=== PATIENT | female | born 1980 | race Two or more races ===

== ENCOUNTER 2018-04-15 22:51 | Emergency (ER) | payer BC, MEDICAID ==
[2018-04-15 23:01] VITALS: BP 182/100
--- NOTE | 2018-04-15 23:42 | EDM.PDOC ---
ED HPI GENERAL MEDICAL PROBLEM - General Chief Complaint: Genitourinary Problem Stated Complaint: POSS CYST ON VAGINAL AREA Time Seen by Provider: 04/15/18 23:42 - History of Present Illness INITIAL COMMENTS - FREE TEXT/NARRATIVE: 37-year-old female presents emergency room with a migraine and she has a right vaginal cyst. Patient developed migraine headache earlier today this progressively getting worse it has associated photophobia and nausea It is acting like a typical headache. It is frontal in nature. I am uncertain whether she had an aura with it or not. Patient usually uses Imitrex for this however this is at home and she has not attempted to use it today. Over the last several days the patient has had a growth in her vaginal area progressively getting worse it is tender. She's had problems like this in the past. She was scheduled to see metaphysicist however that appointment got canceled due to an emergency. Patient has not had any fevers or chills has not noticed any drainage from it Vaginal Pain Score (Numeric/FACES): 10 - Related Data Allergies Allergy/AdvReac Type Severity Reaction Status Date / Time chlorhexidine Allergy Rash Verified 04/16/18 00:32 Home Meds: Home Meds SUMAtriptan [Imitrex] 25 mg PO Q2H PRN #30 tablet 09/17/16 [Rx] Clindamycin HCl [Cleocin] 150 mg PO Q6H #40 cap 04/16/18 [Rx] Past Medical History Cardiovascular History: Reports: Hypertension, Other (See Below) Other Cardiovascular History: "Palpitations" [employer] History: Reports: Neurological History: Reports: Migraines - Past Surgical History GI Surgical History: Reports: Appendectomy Female Surgical History: Reports: Section, Tubal Ligation Social & Family History - Family History Family Medical History: Unobtainable - Tobacco Use Smoking Status *Q: Never Smoker - Caffeine Use Caffeine Use: Reports: None - Living Situation & Occupation Living situation: Reports: , with Spouse Occupation: Unemployed ED ROS GENERAL - Review of Systems Review Of Systems: See Below Constitutional: Denies: Fever, Chills HEENT: Reports: No Symptoms Respiratory: Reports: No Symptoms Cardiovascular: Reports: No Symptoms Endocrine: Reports: No Symptoms GI/Abdominal: Reports: Nausea : Reports: No Symptoms Musculoskeletal: Reports: No Symptoms Skin: Reports: No Symptoms Neurological: Reports: Headache. Denies: Confusion, Dizziness, Numbness, Pre- Existing Deficit, Seizure, Syncope ED EXAM, RENAL/ - Physical Exam Exam: See Below Exam Limited By: No Limitations General Appearance: Alert, No Apparent Distress Eye Exam: Bilateral Eye: EOMI, Normal Inspection Ears: Normal External Exam, Normal Canal, Hearing Grossly Normal, Normal TMs Nose: Normal Inspection, Normal Mucosa, No Blood Throat/Mouth: Normal Inspection, Normal Lips, Normal Teeth, Normal Gums, Normal Oropharynx, Normal Voice, No Airway Compromise Head: Atraumatic, Normocephalic Neck: Normal Inspection, Supple, Non-Tender, Full Range of Motion. No: Lymphadenopathy (L), Lymphadenopathy (R) Respiratory/Chest: No Respiratory Distress, Lungs Clear, Normal Breath Sounds Cardiovascular: Regular Rate, Rhythm, No Edema, No Murmur GI/Abdominal: Normal Bowel Sounds, Soft, Non-Tender (Female) Exam: Vaginal Lesions (She has a right labial cyst versus abscess not a lot of surrounding erythema) Back Exam: Normal Inspection. No: CVA Tenderness (L), CVA Tenderness (R) Extremities: No Pedal Edema Neurological: Alert, Oriented, CN II-XII Intact, Normal Cognition, Normal Gait, Normal Reflexes, No Motor/Sensory Deficits, Other (Radial nerves II through XII grossly intact all muscle groups the upper lower extremities recall appropriate bilaterally deep tendon reflexes are equal and appropriate bilaterally. Cerebellar testing is normal) Course - Vital Signs Last Recorded V/S: Last Vital Signs Temp 36.8 C 04/15/18 22:59 Pulse 70 04/15/18 22:59 Resp BP 182/100 H 04/15/18 22:59 Pulse Ox 100 04/15/18 22:59 - Orders/Labs/Meds Meds: Medications Discontinued Medications Generic Name Dose Route Start Last Admin Trade Name Freq PRN Reason Stop Dose Admin Clindamycin HCl 150 mg 04/16/18 00:07 04/16/18 00:55 Cleocin PO 04/16/18 00:08 150 mg ONETIME ONE Administration Diphenhydramine HCl 50 mg 04/16/18 00:00 04/16/18 00:20 Benadryl IVPUSH 04/16/18 00:01 50 mg ONETIME ONE Administration Lactated Ringer's 1,000 mls @ 999 mls/hr 04/16/18 00:00 04/16/18 00:18 Ringers, Lactated IV 04/16/18 01:00 999 mls/hr .BOLUS ONE Administration Ondansetron HCl 4 mg 04/16/18 00:00 04/16/18 00:18 Zofran IVPUSH 04/16/18 00:01 4 mg ONETIME ONE Administration - Re-Assessments/Exams Free Text/Narrative Re-Assessment/Exam: 04/16/18 00:[address] Toribio patient be started on clindamycin and will follow up with Dr. Toribio hopefully by the end of this week. Patient will be given LR Zofran and Benadryl for her headache 04/16/18 01:05 The patient's IV infiltrated however she's doing much better from a migraine standpoint would like to go home and get some rest Departure - Departure Time of Disposition: 01:06 Disposition: Home, Self-Care 01 Clinical Impression: Migraine, Vaginal cyst - Discharge Information Prescriptions: Clindamycin HCl [Cleocin] 150 mg PO Q6H #40 cap Instructions: Migraine Headache, [id number] Referrals: PCP,Unknown [Primary Care Provider] - Isabel Huynh MD [Physician] - Forms: ED Department Discharge Additional Instructions: Return to the emergency room with any questions or problems. Take the antibiotics as directed Go home and get a good nights sleep. Follow-up with Dr. Toribio later this week
[2018-04-16] MEDS ORDERED: Ondansetron 4 MG/2 ML SDV IVPUSH ONE
[2018-04-16] MEDS ORDERED: Lactated Ringers 1,000 ML IV ONE
[2018-04-16] MEDS ORDERED: diphenhydrAMINE 50 MG/ML SDV IVPUSH ONE
[2018-04-16] MEDS ORDERED: Clindamycin HCl 150 MG Cap PO ONE (00:07)
== END 2018-04-16 01:13 | disposition home or self-care (01) ==
LOC: JD.ED 22:51
DX: G43.909 Migraine, unspecified, not intractable, without status migrainosus (principal); N89.8 Other specified noninflammatory disorders of vagina; I10 Essential (primary) hypertension; Z88.8 Allergy status to other drugs, medicaments and biological substances
CPT/HCPCS: 96374; 96375; 99284; A9270; J1200; J2405; J7120

== ENCOUNTER 2020-04-02 23:46 | Emergency (ER) | payer SELFPAY ==
[2020-04-03] MEDS ORDERED: cloNIDine 0.1 MG Tab PO ONE (00:19)
[2020-04-03] MEDS ORDERED: Ondansetron 4 MG/2 ML SDV IVPUSH ONE (00:20)
[2020-04-03] MEDS ORDERED: diphenhydrAMINE 50 MG/ML SDV IVPUSH ONE ×2 (00:20→02:13)
[2020-04-03] MEDS ORDERED: LORazepam 2 MG/ML SDV IVPUSH ONE ×2 (00:20→02:14)
[2020-04-03] MEDS ORDERED: Sodium Chloride 0.9% 1,000 ML IV SCH (00:30)
--- NOTE | 2020-04-03 00:40 | EDM.PDOC ---
ED HPI GENERAL MEDICAL PROBLEM - General Chief Complaint: Headache Stated Complaint: MIGRAINE AND NECK PAIN Time Seen by Provider: 04/03/20 00:05 Source of Information: Reports: Patient History Limitations: Reports: No Limitations - History of Present Illness INITIAL COMMENTS - FREE TEXT/NARRATIVE: This is a 39-year-old female. She has her significant other interpreting for he r. She apparently has been having a headache for the last couple of days and she has a history of migraines. She normally takes rizatriptan she has run out. She also was supposed to be taking some propanolol for her blood pressure but she has been on that for at least 6 months. Today around 4 PM or so along with her headache she developed some neck soreness. She comes to the ER for evaluation. Her initial blood pressure was 191/123. I spoke to her and her significant other I explained that this kind of blood pressure for her could cause a stroke and does she not have a family doctor that she sees. She does not see a family doctor in [place] where she now lives in the doctor she had here when she lived here has moved somewhere else. I explained to them that despite a doctor moving another doctor will take their place and she needs to go see them for her blood pressure medications. Apparently she was on propanolol they think 50 mg a day for her blood pressure. She complains of some nausea and she vomits periodically though not necessarily related to her headaches. She denies any fever or chills no cough no congestion no abdominal discomfort. Headache Pain Score (Numeric/FACES): 9 - Related Data Allergies Allergy/AdvReac Type Severity Reaction Status Date / Time chlorhexidine Allergy Rash Verified 04/02/20 23:58 ketorolac [From Toradol] Allergy Anxiety Verified 04/02/20 23:58 Home Meds: Home Meds Hydrocodone/Acetaminophen [Hydrocodone-Acetamin 5-325 mg] 1 - 2 each PO Q6HR PRN #10 tablet 04/14/19 [Rx] Propranolol [Inderal] 40 mg PO BID 04/14/19 [History] Propranolol [Inderal] 40 mg PO BID #60 tab 04/03/20 [Rx] Rizatriptan Benzoate [Rizatriptan] 10 mg PO ONETIME PRN #3 tablet 04/03/20 [Rx] Past Medical History HEENT History: Reports: Impaired Vision Other HEENT History: wears eyeglasses. Cardiovascular History: Reports: Hypertension Other Cardiovascular History: "Palpitations" [employer] History: Reports: Neurological History: Reports: Migraines Hematologic History: Reports: Anemia - Infectious Disease History Infectious Disease History: Reports: Chicken Pox - Past Surgical History GI Surgical History: Reports: Appendectomy Female Surgical History: Reports: Section, Tubal Ligation Social & Family History - Family History Family Medical History: Unobtainable - Tobacco Use Smoking Status *Q: Never Smoker Second Hand Smoke Exposure: No - Caffeine Use Caffeine Use: Reports: None - Recreational Drug Use Recreational Drug Use: No - Living Situation & Occupation Living situation: Reports: , with Spouse Occupation: Unemployed ED ROS GENERAL - Review of Systems Review Of Systems: See Below Constitutional: Denies: Fever, Chills HEENT: Reports: Other (Photosensitivity) Respiratory: Denies: Shortness of Breath, Cough Cardiovascular: Denies: Chest Pain Endocrine: Reports: No Symptoms GI/Abdominal: Reports: Nausea. Denies: Abdominal Pain, Diarrhea, Vomiting : Reports: No Symptoms Musculoskeletal: Reports: Neck Pain Skin: Reports: No Symptoms Neurological: Reports: Headache Psychiatric: Reports: No Symptoms Hematologic/Lymphatic: Reports: No Symptoms - Physical Exam Exam: See Below Exam Limited By: Other (Her significant other is interpreting for us) General Appearance: Alert, WD/WN, Mild Distress Eye Exam: Bilateral Eye: Normal Inspection Ears: Normal External Exam, Normal Canal, Normal TMs Nose: Normal Inspection Throat/Mouth: Normal Inspection, Normal Lips, Normal Voice, No Airway Compromise Head Exam: Normocephalic Neck: Supple, Other (Complains of generalized neck soreness especially paraspinal muscles but she moves her head with out difficulty) Respiratory/Chest: No Respiratory Distress, Lungs Clear, Normal Breath Sounds Cardiovascular: Regular Rate, Rhythm, No Murmur GI/Abdominal: Soft, Non-Tender Neuro Exam (Abbreviated): Alert, Oriented, No Motor/Sensory Deficits Back Exam: Full Range of Motion Extremities: Normal Inspection, Normal Range of Motion Psychiatric: Anxious Skin Exam: Warm, Dry Course - Vital Signs Last Recorded V/S: Last Vital Signs Temp 97.3 F 04/02/20 23:54 Pulse 76 04/03/20 01:17 Resp 16 04/03/20 01:17 BP 142/93 H 06/28/20 01:17 Pulse Ox 95 04/03/20 01:17 - Orders/Labs/Meds Orders: Active Orders 24 hr Category Date Time Status LORazepam [Ativan] Med 04/03/20 02:14 Once 0.5 mg IVPUSH ONETIME ONE Sodium Chloride 0.9% [Normal Saline] 1,000 ml Med 04/03/20 00:30 Active IV ASDIRECTED Medication Orders Sodium Chloride (Normal Saline) 1,000 mls @ 1,000 mls/hr IV ASDIRECTED [facility] Last Admin: 04/03/20 00:29 Dose: 1,000 mls/hr Documented by: LEX Meds: Medications Generic Name Dose Route Start Last Admin Trade Name Freq PRN Reason Stop Dose Admin Sodium Chloride 1,000 mls @ 1,000 mls/hr 04/03/20 00:30 04/03/20 00:29 Normal Saline IV 1,000 mls/hr ASDIRECTED [facility] Administration Discontinued Medications Generic Name Dose Route Start Last Admin Trade Name Freq PRN Reason Stop Dose Admin Clonidine HCl 0.3 mg 04/03/20 00:19 04/03/20 00:33 Catapres PO 04/03/20 00:20 0.3 mg ONETIME ONE Administration Diphenhydramine HCl 25 mg 04/03/20 00:20 04/03/20 00:30 Benadryl IVPUSH 04/03/20 00:21 25 mg ONETIME ONE Administration Diphenhydramine HCl 25 mg 04/03/20 02:13 Benadryl IVPUSH 04/03/20 02:14 ONETIME ONE Lorazepam 0.5 mg 04/03/20 00:20 04/03/20 00:31 Ativan IVPUSH 04/03/20 00:21 0.5 mg ONETIME ONE Administration Ondansetron HCl 4 mg 04/03/20 00:20 04/03/20 00:29 Zofran IVPUSH 04/03/20 00:21 4 mg ONETIME ONE Administration - Re-Assessments/Exams Free Text/Narrative Re-Assessment/Exam: 04/03/20 02:14 The patient's migraine is doing better. She is still complains of soreness in her neck especially at the base of the skull. When I palpate her paraspinal muscles and especially where they attach to the base of the skull that is where most of her pain is in her trapezius muscles but she has good range of motion there is no nuchal rigidity. I am going to send her home on a prescription of propranolol that she was on before to control her blood pressure. Her blood pressure came down to 130/90 which is excellent. Departure - Departure Time of Disposition: 02:15 Disposition: Home, Self-Care 01 Condition: Fair Clinical Impression: Cervical muscle pain, Elevated blood pressure reading Migraine headache Qualifiers: Migraine type: unspecified Status migrainosus presence: without status migrainosus Intractability: not intractable Qualified Code(s): G43.909 - Migraine, unspecified, not intractable, without status migrainosus - Discharge Information *PRESCRIPTION DRUG MONITORING PROGRAM REVIEWED*: Not Applicable *COPY OF PRESCRIPTION DRUG MONITORING REPORT IN PATIENT ABHINAV: Not Applicable Prescriptions: Propranolol [Inderal] 40 mg PO BID #60 tab Rizatriptan Benzoate [Rizatriptan] 10 mg PO ONETIME PRN #3 tablet PRN Reason: Pain Instructions: Recurrent Migraine Headache, Hypertension, Adult, [id number] Referrals: PCP,None [Primary Care Provider] - Forms: ED Department Discharge Additional Instructions: Go home and sleep is much as possible in a dark room today, use ice to your neck to help with the muscle soreness and tightness, start your propranolol twice a day as soon as you get the prescription for your blood pressure, take the Rizatriptan for migraine headaches as prescribed, you need to follow-up with your doctor regarding this elevated blood pressure and you continuous migraines, return to the ER if needed Sepsis Event Note (ED) - Evaluation Sepsis Screening Result: No Definite Risk - Focused Exam Vital Signs: Vital Signs Temp Pulse Resp BP BP Pulse Ox 04/03/20 01:17 76 16 142/93 H 95 04/03/20 00:33 191/116 H 04/02/20 23:54 97.3 F 80 16 191/123 H 99 - My Orders Last 24 Hours: My Active Orders 04/03/20 00:30 Sodium Chloride 0.9% [Normal Saline] 1,000 ml IV ASDIRECTED 04/03/20 02:14 LORazepam [Ativan] 0.5 mg IVPUSH ONETIME ONE - Assessment/Plan Last 24 Hours: My Active Orders 04/03/20 00:30 Sodium Chloride 0.9% [Normal Saline] 1,000 ml IV ASDIRECTED 04/03/20 02:14 LORazepam [Ativan] 0.5 mg IVPUSH ONETIME ONE
[2020-04-03 02:50] VITALS: BP 128/87; PULSE 95
== END 2020-04-03 02:45 | disposition home or self-care (01) ==
LOC: JD.ED 23:46
DX: G43.909 Migraine, unspecified, not intractable, without status migrainosus (principal); M54.2 Cervicalgia; I10 Essential (primary) hypertension; Z88.6 Allergy status to analgesic agent; Z91.09 Other allergy status, other than to drugs and biological substances; Z79.899 Other long term (current) drug therapy
CPT/HCPCS: 96361; 96374; 96375; 96376; 99283; A9270; J1200; J2060; J2405; J7030; 99284